=== PATIENT | female | born 1995 | race Two or more races ===

== ENCOUNTER 2024-10-30 13:56 | Emergency (ER) | payer BC, OTHER ==
[~2024-10-30] VITALS: Ht 160 cm; Wt 85.3 kg
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
[2024-10-30] MEDS: HYDROcodone-ACET 10/325MG TAB PO ONE (15:50)
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
[2024-10-30 16:00] VITALS: BP 139/84; PULSE 84; RESP 20; TEMP 98.6; O2SAT 99
[2024-10-30] MEDS ORDERED: IBUP1TAB5 PO (16:14)
== END 2024-10-30 16:27 | disposition home or self-care (01) ==
LOC: ER 13:58
DX: S93.691A Other sprain of right foot, initial encounter (principal); V89.2XXA Person injured in unspecified motor-vehicle accident, traffic, initial encounter; Y93.I9 Activity, other involving external motion; Y92.488 Other paved roadways as the place of occurrence of the external cause; Y99.8 Other external cause status
CPT/HCPCS: 73630